=== PATIENT | male | born 1930 | race Caucasian/White ===

== ENCOUNTER 2017-10-16 14:22 | Inpatient (IN) | payer OTHER ==
[~2017-10-16] VITALS: Ht 177.8 cm; Wt 92.1 kg
[2017-10-16 14:48] VITALS: BP 139/89
--- NOTE | 2017-10-16 14:58 | NUR ---
PT TAKEN TO BED 12
--- NOTE | 2017-10-16 15:22 | NUR ---
PT CAME IN FROM HOME WITH FAMILY. PT HAS HX OF CVA AND OH. PT NON-VERBAL (NORMAL). O2SAT WAS 86. PUT O 2LPM O2 VIA NC AND OX INCREASED TO 92%. PT DOES NOT APPEAR TO BE IN DISTRESS. PLACED IN POC. AWARES. CONTINUE TO MONITOR.
[2017-10-16] MEDS ORDERED: MORPHINE SULFATE 2 MG/ML SYR IVP ONE (15:30)
[2017-10-16] MEDS ORDERED: ALBUTEROL SULFATE/IPRATROPIU 3 ML SOL IH ONE (15:30)
[2017-10-16] MEDS ORDERED: FUROSEMIDE 100 MG/10 ML VIAL IVP ONE (15:30)
--- NOTE | 2017-10-16 16:19 | NUR ---
PT TAKEN TO X-RAY/CT [facility]IA [facility].
[2017-10-16 16:21] LABS: HEMATOCRIT 42.7 % (36-52); MEAN CORPUSCULAR HEMOGLOBIN 26 pg (27-31); MEAN CORPUSCULAR HGB CONC 33 g/dL (33-37); MEAN CORPUSCULAR VOLUME 79 fL (80-94); PLATELET COUNT (AUTO) 316 K/uL (140-450); RED BLOOD CELL COUNT(AUTO) 5.42 MIL/uL (4.20-6.10); WHITE BLOOD COUNT (AUTO) 16.4 K/uL (4.8-10.8)
--- NOTE | 2017-10-16 16:22 | NUR ---
PT TAKEN TO CT.
[2017-10-16 16:27] LABS: ALBUMIN 2.6 g/dL (3.4-5.0); AMYLASE 48 U/L (25-115); ANION GAP 3.8 (8-16); ASPARTATE AMINOTRANSFERASE 77 U/L (15-37); CARBON DIOXIDE 24.2 mmol/L (21-32); CHLORIDE 93 mmol/L (98-107); CREATININE 1.4 mg/dL (0.7-1.3); GLUCOSE 179 mg/dL (74-106); LIPASE 70 U/L (73-393); UREA NITROGEN, BLOOD 34 mg/dL (7-18)
[2017-10-16] MEDS ORDERED: LACT10SO1 PO (16:30)
[2017-10-16] MEDS ORDERED: ASPI81CT89 PO (16:30)
[2017-10-16] MEDS ORDERED: MIRT15TA PO (16:30)
[2017-10-16] MEDS ORDERED: TAMS0.4C96 PO (16:30)
[2017-10-16] MEDS ORDERED: FLONAS NS (16:30)
[2017-10-16] MEDS ORDERED: FINA5TAB1 PO (16:30)
[2017-10-16] MEDS ORDERED: [UNRECOGNIZED DRUG - CODE] PO (16:30)
[2017-10-16] MEDS ORDERED: MAGN400S60 PO (16:30)
--- NOTE | 2017-10-16 16:30 | NUR ---
PATIENT IS BACK FROM CT [facility]IA [facility].
[2017-10-16 16:31] LABS: SODIUM SERUM 118 mmol/L (136-145)
[2017-10-16] MEDS ORDERED: NACL 0.9% 1,000 ML IV ONE (16:40)
[2017-10-16 16:45] LABS: LYMPHOCYTES % (MANUAL) 5 % (20-46); MONOCYTES % (MANUAL) 11 % (5-12)
[2017-10-16] MEDS ORDERED: methylPREDNISolone SS 125 MG in WATER STERILE 2 ML IM ONE (17:20)
[2017-10-16] MEDS ORDERED: POTASSIUM CHL 20 MEQ/NACL 0.9% 1,000 ML IV ONE (17:20)
[2017-10-16] MEDS ORDERED: LACTATED RINGERS 1,000 ML IV ONE (17:20)
[2017-10-16] MEDS ORDERED: PIPERACILLIN/TAZOBACTAM 4.5 GM in DEXTROSE 5% 100 ML IV ONE (17:35)
[2017-10-16 18:12] LABS: MAGNESIUM 2.6 mg/dL (1.8-2.4); THYROID STIMULATING HORMONE 0.76 uIU/mL (0.34-3.74)
[2017-10-16 18:36] LABS: APPEARANCE,URINE SL CLOUDY (CLEAR); BILIRUBIN,URINE NEGATIVE (NEGATIVE); BLOOD, URINE 3+ (NEGATIVE); COLOR,URINE YELLOW (YELLOW); LEUKOCYTE ESTERASE ,URINE 2+ (NEGATIVE); NITRITE, URINE NEGATIVE (NEGATIVE); PH,URINE 5.5 (5.0-9.0); UGLUCOSE NEGATIVE (NEGATIVE)
[2017-10-16] MEDS ORDERED: PIPERACILLIN/TAZOBACTAM 2.25 GM VIAL IV ONE (18:37)
[2017-10-16 18:39] LABS: RBC,URINE 80-100 /HPF (0-5); WBC,URINE 16-25 (MOD) /HPF (0-5)
[2017-10-16] MEDS: POTASSIUM CHLORIDE 10 MEQ TABER PO ONE ×2 (18:40→19:15)
--- NOTE | 2017-10-16 19:35 | NUR ---
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
[2017-10-16 19:40] VITALS: BP 112/68
--- NOTE | 2017-10-16 21:13 | NUR ---
DR ORR CALLED TO GIVE ORDERS TO FOLLOW AND PT'S DAUGHTER LEONOR OJEDA HELP TO GIVE INFORMATION TO ADMIT PT
[2017-10-16] MEDS ORDERED: POTASSIUM CHLORIDE 20% 40 MEQ/15 ML UDC PO SCH (21:15)
[2017-10-16] MEDS ORDERED: SODIUM PHOSPHATE 118 ML ENEM RC SCH (21:20)
[2017-10-17] VITALS: BP 122/75
--- NOTE | 2017-10-17 | NUR ---
AFTER FIRST FLEET ENEMA GIVENPT HAS ONLY SMEAR YELLOW STOOL ABD DISTENDED PT NOT SIGNS OF PAIN REPOSITIONED Q2H SR ON TELEMETRY
[2017-10-17] MEDS ORDERED: SODIUM PHOSPHATE 118 ML ENEM RC SCH (03:30)
[2017-10-17 04:00] VITALS: BP 146/79
--- NOTE | 2017-10-17 04:05 | NUR ---
ANOTHER FLEET ENEMA GIVEN PT NON VERBAL NOT SIGNS OF PAIN SR ON TELMETRY REPOSITIONED Q2H IV INFUSING WELL ON LEFT HAND
--- NOTE | 2017-10-17 05:54 | NUR ---
PT SLEEPING ABD DISTENDED NOT STOOL YET ON TELE SR REPOSITIONED Q2H,LINEN CHANGED
[2017-10-17] MEDS: POTASSIUM CHL 20 MEQ/NACL 0.9% 1,000 ML IV SCH ×3 (05:57→17:27)
--- NOTE | 2017-10-17 05:59 | NUR ---
PT HGAS A PRODUCTIVE COUGH AND DIFFICULTY TO SPIT OUT
--- NOTE | 2017-10-17 06:52 | NUR ---
ABD DISTENTED AFTER 2 FLEET ENEMA NOT BM YET PT WILL ENDORSED TO DAY SHIFT FOR CONTINUITY OF CARE
--- NOTE | 2017-10-17 07:30 | NUR ---
RECEIVED PT FROM TRACK SUPERINTENDENT RN. PT AOX1 NON VERBAL, OPEN EYES TO NAME, DOES NOT FOLLOW COMMAND. 2L O2 VIA NC. ON TELEMETRY, ABD DISTENDED, TOMAS CATH DRAINING CLEAR ORANGE URINE. BRUISES ON ARMS AND REDNESS DISCOLORATION DRYNESS ON BOTH FEET, NO S/S OF ACUTE DISTRESS NOTED. BED IN LOW POSITION, CALL LIGHT WITHIN REACH. WILL CONTINUE TO MONITOR.
[2017-10-17 07:44] LABS: ANION GAP 13.2 (8-16); CHLORIDE 102 mmol/L (98-107); CREATININE 1.1 mg/dL (0.7-1.3); GLUCOSE 179 mg/dL (74-106); POTASSIUM 3.2 mmol/L (3.5-5.1); SODIUM SERUM 136 mmol/L (136-145); UREA NITROGEN, BLOOD 28 mg/dL (7-18)
[2017-10-17 07:53] LABS: BASOPHILS # (AUTO) 0.2 K/uL (0.00-0.22); EOSINOPHILS % (AUTO) 0.3 % (0.0-4.0); HEMATOCRIT 42.2 % (36-52); HEMOGLOBIN 13.8 g/dL (12.0-18.0); LYMPHOCYTES # (AUTO) 0.4 K/uL (2.0-11.5); LYMPHOCYTES % (AUTO) 2.6 % (20.5-51.1); MEAN CORPUSCULAR HEMOGLOBIN 26 pg (27-31); MEAN CORPUSCULAR HGB CONC 33 g/dL (33-37); MEAN CORPUSCULAR VOLUME 80 fL (80-94); MONOCYTES # (AUTO) 0.3 K/uL (0.8-1.0); MONOCYTES % (AUTO) 1.9 % (1.7-9.3); NEUTROPHILS # (AUTO) 14.4 K/uL (1.8-7.7); NEUTROPHILS % (AUTO) 94.2 % (42.2-75.2); PLATELET COUNT (AUTO) 255 K/uL (140-450); RED BLOOD CELL COUNT(AUTO) 5.31 MIL/uL (4.20-6.10); RED CELL DISTRIBUTION WIDTH 13.9 % (11.6-13.7); WHITE BLOOD COUNT (AUTO) 15.3 K/uL (4.8-10.8)
[2017-10-17 08:06] VITALS: BP 152/91
--- NOTE | 2017-10-17 09:23 | NUR ---
PATIENT HAS BEEN SCREENED AND CATEGORIZED HIGH NUTRITION RISK. PATIENT WILL BE SEEN WITHIN 1-2 DAYS OF ADMISSION. 10/16/17-10/17/[address]
[2017-10-17] MEDS ORDERED: ALBUTEROL SULFATE/IPRATROPIU 3 ML SOL IH PRN (09:30)
--- NOTE | 2017-10-17 09:30 | NUR ---
PT HAD SMALL BOWEL MOVEMENT. STOOL IS LIQUIDY AND YELLOW.
[2017-10-17] MEDS: PANTOPRAZOLE 40 MG INJ VIAL IVP SCH (09:34)
[2017-10-17] MEDS: POTASSIUM CHLORIDE 20% 40 MEQ/15 ML UDC PO SCH ×2 (10:05→10:20)
[2017-10-17 12:30] VITALS: BP 159/80
[2017-10-17] MEDS: LACTULOSE 20 GM/30 ML UDC PO SCH ×2 (13:17→20:44)
[2017-10-17] MEDS: metroNIDAZOLE 500 MG/NS PREMIX 100 ML IV SCH ×2 (13:17→20:44)
--- NOTE | 2017-10-17 15:59 | NUR ---
PLEASE REFER TO NUTRITION ASSESSMENT UNDER CARE ACTIVITY FOR ESTIMATED NUTRITIONAL NEEDS. 1.DIET TO ADVANCE TOLERATED 2.PT TO CONSUME > 75% ESTIMATED ENERGY AND PROTEIN NEEDS WITHIN 2-3 DAYS 3.RD TO FOLLOW-UP IN 2-3 DAYS ON 10/20/2017 PATIENT IS HIGH RISK. NETTA CHAHAL, RD
[2017-10-17 16:00] VITALS: BP 149/87
--- NOTE | 2017-10-17 19:40 | NUR ---
REPORT GIVEN TO TOOL ANALYST RN. PT IN STABLE CONDITION.
--- NOTE | 2017-10-17 19:45 | NUR ---
RECEIVED REPORT FROM DAY RN, PATIENT RESTING IN BED, AWAKE ALERT, NON-VERBAL. NO S/S OF DISTRESS NOTED, RESPIRATION EVEN AND UNLABORED, ON O2 NC 2L. IV ON LT HAND PATENT AND INTACT, INFUSING NS-KCL AT 100ML/HR, TOMAS IN PLACE DRAINING URINE BY GRAVITY. CALL LIGHT WITHIN REACH, SAFETY MEASURE ENSURED ,WILL CONTINUE TO MONITOR.
[2017-10-17 20:00] VITALS: BP 151/68
--- NOTE | 2017-10-17 20:05 | NUR ---
PLYWOOD FACTORY WORKER MADE ROUNDS, ASSISTED PLYWOOD FACTORY WORKER TURNING THE PATIENT. PATIENT IS RESTING IN BED, NO S/S OF DISTRESS NOTED, RESPIRATION EVEN AND UNLABORED, CALL LIGHT WITHIN REACH, SAFETY MEASURE ENSURED, WILL CONTINUE TO MONITOR.
[2017-10-17] MEDS: MIRTAZAPINE 15 MG TAB PO SCH (20:44)
--- NOTE | 2017-10-17 20:55 | NUR ---
DUE MEDICATION GIVEN, PATIENT TOLERATED WELL. NO S/S OF DISTRESS NOTED, RESPIRATION EVEN AND UNLABORED, CALL LIGHT WITHIN REACH, SAFETY MEASURE ENSURED, WILL CONTINUE TO MONITOR.
--- NOTE | 2017-10-17 22:10 | NUR ---
PATIENT WAS SLEEPING, NO S/S OF DISTRESS NOTED, RESPIRATION EVEN AND UNLABORED, EASY TO AROUSE. REPOSITIONED PATIENT WITH THE TRACK GREASER, CALL LIGHT WITHIN REACH, SAFETY MEASURE ENSURED, WILL CONTINUE TO MONITOR.
[2017-10-18] VITALS: BP 159/78
--- NOTE | 2017-10-18 00:19 | NUR ---
NOTED PATIENT MADE SMALL AMOUNT OF BOWEL MOVEMENT, CLEANED THE PATIENT AND CHANGED THE GOWN, REPOSITIONED THE PATIENT WITH THE DEALER SALES REP, CALL LIGHT WITHIN REACH, SAFETY MEASURE ENSURED, WILL CONTINUE TO MONITOR.
--- NOTE | 2017-10-18 02:33 | NUR ---
PATIENT WAS SLEEPING, EASY TO AROUSE, NO S/S OF DISTRESS NOTED, RESPIRATION EVEN AND UNLABORED, REPOSITIONED PATIENT WITH THE PROCESS CONTROL ENGINEER, CALL LIGHT WITHIN REACH, SAFETY MEASURE ENSURED, WILL CONTINUE TO MONITOR.
[2017-10-18 04:00] VITALS: BP 158/97
[2017-10-18] MEDS: POTASSIUM CHL 20 MEQ/NACL 0.9% 1,000 ML IV SCH ×2 (04:15→13:32)
--- NOTE | 2017-10-18 04:18 | NUR ---
REPOSITIONED PATIENT WITH THE RESTAURANT SUPERVISOR, PATIENT TOLERATED WELL. NO S/S OF DISTRESS NOTED, RESPIRATION EVEN AND UNLABORED, CALL LIGHT WITHIN REACH, SAFETY MEASURE ENSURED, WILL CONTINUE TO MONITOR.
[2017-10-18] MEDS: metroNIDAZOLE 500 MG/NS PREMIX 100 ML IV SCH ×3 (04:20→20:41)
[2017-10-18] MEDS: LACTULOSE 20 GM/30 ML UDC PO SCH (04:20)
--- NOTE | 2017-10-18 06:48 | NUR ---
NO CHANGE IN CONDITION, PATIENT WAS SLEEPING, EASY TO AROUSE, REPOSITIONED PATIENT WITH THE SUPERVISOR ROLLER PRINTING, PATIENT TOLERATED WELL. NO S/S OF DISTRESS NOTED, RESPIRATION EVEN AND UNLABORED, CALL LIGHT WITHIN REACH, SAFETY MEASURE ENSURED, WILL CONTINUE TO MONITOR.
--- NOTE | 2017-10-18 07:13 | NUR ---
MADE DR. ORR AWARE THAT PATIENT ONLY HAD SMALL AMOUNT OF BOWEL MOVEMENT. NO NEW ORDER RECEIVED AT THIS TIME.
--- NOTE | 2017-10-18 07:38 | NUR ---
ENDORSED PLAN OF CARE TO DAY SHIFT RN, PATIENT RESTING IN BED, IN STABLE CONDITION.
--- NOTE | 2017-10-18 07:40 | NUR ---
RECEIVED REPORT FROM NIGHT NURSE BULMARO AT PT BEDSIDE. PATIENT IS AWAKE AND ALERT, FOLLOWS COMMANDS. PATIENT UNABLE TO VERBALIZE NEEDS. ABDOMINAL DISTENTION NOTED WITH SMALL SMEAR. ON O2 2L NC. HAS TOMAS IN PLACE TO GRAVITY IN MODERATE AMOUNT. BEDREST, BED ALARMS CHECKED. BED IN LOWEST POSITION. IV SITE PATENT AND INTACT. LUNG SOUNDS COARSE. CALL LIGHT WITHIN REACH. HOB ELEVATED. NO S/S OF ACUTE DISTRESS NOTED.
[2017-10-18 07:52] LABS: BASOPHILS # (AUTO) 0.2 K/uL (0.00-0.22); BASOPHILS % (AUTO) 0.9 % (0.0-2.0); EOSINOPHILS % (AUTO) 0.2 % (0.0-4.0); HEMATOCRIT 44.3 % (36-52); HEMOGLOBIN 14.4 g/dL (12.0-18.0); LYMPHOCYTES % (AUTO) 5.9 % (20.5-51.1); MEAN CORPUSCULAR HEMOGLOBIN 26 pg (27-31); MEAN CORPUSCULAR HGB CONC 33 g/dL (33-37); MEAN CORPUSCULAR VOLUME 80 fL (80-94); MONOCYTES # (AUTO) 2.6 K/uL (0.8-1.0); MONOCYTES % (AUTO) 14.7 % (1.7-9.3); NEUTROPHILS # (AUTO) 13.8 K/uL (1.8-7.7); NEUTROPHILS % (AUTO) 78.3 % (42.2-75.2); PLATELET COUNT (AUTO) 288 K/uL (140-450); RED BLOOD CELL COUNT(AUTO) 5.52 MIL/uL (4.20-6.10); RED CELL DISTRIBUTION WIDTH 13.9 % (11.6-13.7)
[2017-10-18 08:00] VITALS: BP 154/92
[2017-10-18 08:12] LABS: ALBUMIN 2.4 g/dL (3.4-5.0); ANION GAP 12.8 (8-16); ASPARTATE AMINOTRANSFERASE 34 U/L (15-37); CARBON DIOXIDE 25.6 mmol/L (21-32); CHLORIDE 107 mmol/L (98-107); GLUCOSE 126 mg/dL (74-106); POTASSIUM 3.4 mmol/L (3.5-5.1); SODIUM SERUM 142 mmol/L (136-145); TOTAL BILIRUBIN 0.6 mg/dL (0.0-1.0); UREA NITROGEN, BLOOD 25 mg/dL (7-18)
[2017-10-18] MEDS ORDERED: SENNA 8.6 MG TAB PO SCH (09:00)
[2017-10-18] MEDS ORDERED: POLYETHYLENE GLYCOL 17 GM/PKT PO SCH (09:00)
[2017-10-18 09:08] LABS: WHITE BLOOD COUNT (AUTO) 17.6 K/uL (4.8-10.8)
--- NOTE | 2017-10-18 10:30 | NUR ---
PATIENT ASSISTED IN CHANGING OF POSITIONS. LINENS KEPT CLEAN AND DRY. RESTING IN BED, NO S/S OF ACUTE DISTRESS NOTED.
[2017-10-18] MEDS: TAMSULOSIN 0.4 MG CAP PO SCH (10:33)
[2017-10-18] MEDS: LOSARTAN 50 MG TAB PO SCH (10:33)
[2017-10-18] MEDS: PANTOPRAZOLE 40 MG INJ VIAL IVP SCH (10:33)
[2017-10-18 12:00] VITALS: BP 140/92
[2017-10-18] MEDS: POLYETHYLENE GLYCOL 17 GM/PKT PO SCH ×3 (13:00→20:41)
[2017-10-18] MEDS ORDERED: FUROSEMIDE 20 MG/2 ML VIAL IVP SCH (13:00)
[2017-10-18] MEDS ORDERED: MAGNESIUM CITRATE 300 ML BTL PO SCH (13:00)
[2017-10-18] MEDS: SENNA 8.6 MG TAB PO SCH ×2 (13:00→18:57)
--- NOTE | 2017-10-18 15:00 | NUR ---
PATIENT RETURNED FROM RADIOLOGY. NO S/S OF ACUTE DISTRESS NOTED, RESTING IN BED, EASILY AWAKENS. AWAITING RESULTS.
[2017-10-18 16:00] VITALS: BP 138/73
--- NOTE | 2017-10-18 18:30 | NUR ---
SPOKE WITH DR. SOUZA REGARDING BARRIUM XRAY , NEW ORDERS RECEIVED. PATIENT WAS TRANSFERRED TO BED 113. ORDERS FOR TELEMETRY MONITORING.
[2017-10-18] MEDS: POTASSIUM CHLORIDE 20% 40 MEQ/15 ML UDC PO SCH ×2 (18:56→20:41)
[2017-10-18] MEDS: LEVOFLOXACIN 500 MG/D5W PREMIX 100 ML IV SCH (19:00)
--- NOTE | 2017-10-18 19:25 | NUR ---
SBAR REPORT GIVEN TO RN HARVEY. NO S/S OF ACUTE DISTRESS NOTED.
--- NOTE | 2017-10-18 19:30 | NUR ---
RECEIVED PT IN STABLE CONDITION FROM AM NURSE. AWAKE, ALERT AND ORIENTED X 1-2. PT ON O2 2L/NC. ON TELE MONITOR. BEDREST . WITH IVF INFUSING WELL ON THE LT HAND#22. CLEAR AND PATENT. ABDOMEN IS LARGE, DISTENDED. STILL GETTING STOOL SOFTENER ORDERED. HAS TOMAS CATHETER TO GRAVITY, WITH CLEAR URINE OUTPUT. BED ON LOW POSITION. SIDE RAILS UP X2. NEED FREQUENT ROUNDS. CALL LIGHT PLACED WITHIN EASY REACH. HAS BLE SCD MACHINE ON. WILL CONTINUE TO MONITOR.
[2017-10-18 20:00] VITALS: BP 117/73
[2017-10-18] MEDS ORDERED: NEOSTIGMINE 1:1000 10 MG/10 ML VIAL IV SCH (20:00)
[2017-10-18] MEDS: MIRTAZAPINE 15 MG TAB PO SCH (20:41)
[2017-10-18] MEDS: BISACODYL 10 MG SUPP RC SCH (20:42)
--- NOTE | 2017-10-18 20:55 | NUR ---
NEOSTIGMINE IVP GIVEN ORDERED. PT HR WAS MONITORED BEFORE AND AFTER THE INFUSION. PT TOLERATED WELL. NO UNTOWARD REACTION NOTED. WILL CONTINUE TO MONITOR.
--- NOTE | 2017-10-18 22:00 | NUR ---
HAD A MODERATE LOOSE STOOL . CLEANED AND KEPT DRY. WILL CONTINUE TO MONITOR.
[2017-10-19 00:35] VITALS: BP 119/66
--- NOTE | 2017-10-19 01:00 | NUR ---
PT HAD ANOTHER LOOSE BROWNISH STOOL IN LARGE AMOUNT. CLEANED AND KEPT DRY. BUTTOCKS WITH SOME REDNESS . BUT INTACT. REPOSITIONED FOR COMFORT.
[2017-10-19 05:00] VITALS: BP 135/77
[2017-10-19] MEDS: metroNIDAZOLE 500 MG/NS PREMIX 100 ML IV SCH ×3 (05:02→21:12)
[2017-10-19] MEDS: POTASSIUM CHLORIDE 20% 40 MEQ/15 ML UDC PO SCH ×3 (05:03→21:13)
[2017-10-19] MEDS: POTASSIUM CHL 20 MEQ/NACL 0.9% 1,000 ML IV SCH (05:09)
--- NOTE | 2017-10-19 07:00 | NUR ---
PT HAD A TOTAL X4 LOOSE BROWNISH BM DURING THE NIGHT.
[2017-10-19] MEDS ORDERED: MILD SOAP AND WATER TP PRN (07:05)
[2017-10-19] MEDS ORDERED: HYDRAGUARD CREAM TP PRN (07:05)
--- NOTE | 2017-10-19 07:30 | NUR ---
ENDORSED PT IN STABLE CONDITION TO AM NURSE.
--- NOTE | 2017-10-19 07:31 | NUR ---
RECEIVED REPORT FROM MONOGRAM MACHINE OPERATOR NURSE HARVEY AT BEDSIDE FOR CONTINUITY OF CARE. PT IS SLEEPING RIGHT NOW. NON-VERBAL. NO SIGNS OF DISTRESS. IV INFUSING AT 50ML/HR. WILL CONTINUE TO MONITOR.
[2017-10-19 08:00] VITALS: BP 136/70
[2017-10-19] MEDS: BISACODYL 10 MG SUPP RC SCH ×2 (09:00→21:14)
[2017-10-19] MEDS: SENNA 8.6 MG TAB PO SCH ×3 (09:00→17:48)
[2017-10-19] MEDS: POLYETHYLENE GLYCOL 17 GM/PKT PO SCH ×4 (09:00→21:12)
[2017-10-19] MEDS: LOSARTAN 50 MG TAB PO SCH (10:14)
[2017-10-19] MEDS: TAMSULOSIN 0.4 MG CAP PO SCH (10:14)
[2017-10-19] MEDS: PANTOPRAZOLE 40 MG INJ VIAL IVP SCH (10:14)
[2017-10-19 10:37] LABS: BASOPHILS # (AUTO) 0.4 K/uL (0.00-0.22); BASOPHILS % (AUTO) 2.4 % (0.0-2.0); EOSINOPHILS % (AUTO) 0.2 % (0.0-4.0); HEMATOCRIT 42.3 % (36-52); HEMOGLOBIN 13.6 g/dL (12.0-18.0); LYMPHOCYTES # (AUTO) 1.4 K/uL (2.0-11.5); MEAN CORPUSCULAR HEMOGLOBIN 26 pg (27-31); MEAN CORPUSCULAR HGB CONC 32 g/dL (33-37); MEAN CORPUSCULAR VOLUME 81 fL (80-94); MONOCYTES # (AUTO) 1.4 K/uL (0.8-1.0); MONOCYTES % (AUTO) 8.8 % (1.7-9.3); NEUTROPHILS # (AUTO) 12.7 K/uL (1.8-7.7); NEUTROPHILS % (AUTO) 79.6 % (42.2-75.2); PLATELET COUNT (AUTO) 265 K/uL (140-450); RED CELL DISTRIBUTION WIDTH 14.3 % (11.6-13.7)
[2017-10-19 11:24] LABS: ANION GAP 8.6 (8-16); CARBON DIOXIDE 26.9 mmol/L (21-32); CHLORIDE 111 mmol/L (98-107); POTASSIUM 3.5 mmol/L (3.5-5.1); SODIUM SERUM 143 mmol/L (136-145)
[2017-10-19 11:25] LABS: CREATININE 0.9 mg/dL (0.7-1.3); GLUCOSE 98 mg/dL (74-106); UREA NITROGEN, BLOOD 28 mg/dL (7-18)
[2017-10-19 11:45] LABS: ALBUMIN 2.3 g/dL (3.4-5.0); ASPARTATE AMINOTRANSFERASE 30 U/L (15-37); TOTAL BILIRUBIN 0.7 mg/dL (0.0-1.0)
[2017-10-19 12:00] VITALS: BP 115/59
[2017-10-19 12:11] LABS: WHITE BLOOD COUNT (AUTO) 15.9 K/uL (4.8-10.8)
[2017-10-19] MEDS: MILD SOAP AND WATER TP SCH (12:50)
[2017-10-19] MEDS: HYDRAGUARD CREAM TP SCH (13:00)
--- NOTE | 2017-10-19 13:00 | NUR ---
ADMINISTERED SCHEDULED MEDS. PT TOLERATED WELL. ADMIN HYDRAGUARD TO JANETH AREA FOR REDNESS DUE TO INCONTINENT STOOL. REPOSITIONED PT TO LEFT LATERAL. RESTING IN BED RIGHT NOW. NO SIGNS OF DISTRESS WILL CONTINUE TO MONITOR.
[2017-10-19] MEDS ORDERED: NEOSTIGMINE 1:1000 10 MG/10 ML VIAL IV SCH ×2 (14:02→15:00)
[2017-10-19] MEDS: LEVOFLOXACIN 500 MG/D5W PREMIX 100 ML IV SCH (14:29)
--- NOTE | 2017-10-19 14:30 | NUR ---
DR. SOUZA CAME IN AND SAW PT. ADMINISTERED NEOSTIGMINE PER ORDER BY . MONITORED HR AND PT ON TELE MONITOR. HR 88. SR. NO SIGNS OF DISTRESS. WILL CONTINUE TO MONITOR.
[2017-10-19 16:00] VITALS: BP 103/54
--- NOTE | 2017-10-19 17:45 | NUR ---
ADMINISTERED SCHEDULED MEDS. PT TOLERATED WELL. PT'S DAUGHTER AT BEDSIDE. UPDATED ON PT STATUS, CHANGE IN DIET AND REPORTED HAVING 2 BMS TODAY. NO SIGNS OF DISTRESS. BED IN LOW POSITION, WHEELS LOCKED, BED ALARM ON, WILL CONTINUE TO MONITOR.
--- NOTE | 2017-10-19 19:30 | NUR ---
ENDORSED PT TO HOG COOLER NURSE IRMA AT BEDSIDE FOR CONTINUITY OF CARE. PT IN STABLE CONDITION.
--- NOTE | 2017-10-19 19:32 | NUR ---
RECEIVED PT FROM DAY SHIF NURSE PT IS AOX1 MUMBLING SAY SOME WORDS, ON ;0;2 2 LTS VIA NC, ON TELEMETRY SR IV ;ON LEFT HAND INFUSING WELL, TOMAS CATH DRAINING WELL DARK SARWAT COLOR URINE , ABD DISTENTED, PERISTALSIS PRESENT,LIGHT REDNESS ONBUTTOCK REPOSITIONED INITIAL ASSESSMENT DONE
[2017-10-19 20:00] VITALS: BP 90/49
[2017-10-19] MEDS: MIRTAZAPINE 15 MG TAB PO SCH (21:13)
--- NOTE | 2017-10-19 22:00 | NUR ---
PT HAS BEEN REPOSITIONED Q2H ON TEL SR D NOT SIGNS OF PAIN NOTED FOLLOW COMMANDS
[2017-10-20] VITALS: BP 127/77
[2017-10-20] MEDS: MILD SOAP AND WATER TP SCH ×2 (01:00→12:56)
[2017-10-20] MEDS: HYDRAGUARD CREAM TP SCH ×2 (01:00→12:55)
--- NOTE | 2017-10-20 01:00 | NUR ---
PT REPOSITIONED ON TELE SR NOT DISTRESS NOTED
[2017-10-20 04:00] VITALS: BP 145/77
--- NOTE | 2017-10-20 04:00 | NUR ---
SPONGE BATH GIVEN , LINEN CHANGED A BIG BM ON TELE SR PT COOPERATIVE TO FOLLOW COMMANDS
[2017-10-20] MEDS: metroNIDAZOLE 500 MG/NS PREMIX 100 ML IV SCH ×2 (05:30→12:54)
[2017-10-20] MEDS: POTASSIUM CHLORIDE 20% 40 MEQ/15 ML UDC PO SCH ×2 (05:31→12:55)
[2017-10-20] MEDS: POTASSIUM CHL 20 MEQ/NACL 0.9% 1,000 ML IV SCH (05:35)
--- NOTE | 2017-10-20 06:30 | NUR ---
PT RESTING ON BED MORE ALERT SAY SOME WORDS FOLLOW COMMANDS ON TELEMETRYSR NOT FEVER , NOT SIGNS OF PAIN ABD LESS DISTENDED PERISTALSIS PRESENT
--- NOTE | 2017-10-20 07:30 | NUR ---
RECEIVED PT FROM HARVEST WORKER FRUIT RN, CONTACT ISOLATION, DNR STATUS. PT AWAKE, ALERT, ABLE TO FOLLOW COMMANDS. ON O2 NC 2L/MIN, NO S/S OF RESPIRATORY DISTRESS NOTED, PT UNABLE TO TURN HIMSELF, IV SITE INTACT AND PATENT. REDNESS TO SACRAL AREA. REPOSITIONED PT. CALL LIGHT IN REACH, WILL CONTINUE TO MONITOR.
[2017-10-20 07:44] LABS: HEMATOCRIT 42.7 % (36-52); HEMOGLOBIN 13.7 g/dL (12.0-18.0); MEAN CORPUSCULAR HEMOGLOBIN 26 pg (27-31); MEAN CORPUSCULAR HGB CONC 32 g/dL (33-37); MEAN CORPUSCULAR VOLUME 81 fL (80-94); PLATELET COUNT (AUTO) 256 K/uL (140-450); RED BLOOD CELL COUNT(AUTO) 5.26 MIL/uL (4.20-6.10); RED CELL DISTRIBUTION WIDTH 14.6 % (11.6-13.7); WHITE BLOOD COUNT (AUTO) 14.5 K/uL (4.8-10.8)
[2017-10-20 08:00] VITALS: BP 134/74
[2017-10-20 08:07] LABS: ASPARTATE AMINOTRANSFERASE 26 U/L (15-37); CARBON DIOXIDE 26.8 mmol/L (21-32); CHLORIDE 115 mmol/L (98-107); CREATININE 0.9 mg/dL (0.7-1.3); GLUCOSE 123 mg/dL (74-106); POTASSIUM 3.8 mmol/L (3.5-5.1); SODIUM SERUM 148 mmol/L (136-145); TOTAL BILIRUBIN 0.5 mg/dL (0.0-1.0); UREA NITROGEN, BLOOD 22 mg/dL (7-18)
[2017-10-20] MEDS ORDERED: POTASSIUM CHL 20 MEQ/ 1/2 NS 1,000 ML IV SCH (08:25)
[2017-10-20 09:09] LABS: EOSINOPHILS % (MANUAL) 2 % (0-4); LYMPHOCYTES % (MANUAL) 10 % (20-46); MONOCYTES % (MANUAL) 5 % (5-12)
[2017-10-20] MEDS: PANTOPRAZOLE 40 MG INJ VIAL IVP SCH (09:25)
[2017-10-20] MEDS: SENNA 8.6 MG TAB PO SCH ×3 (09:26→17:06)
[2017-10-20] MEDS: POLYETHYLENE GLYCOL 17 GM/PKT PO SCH ×3 (09:26→17:06)
[2017-10-20] MEDS: TAMSULOSIN 0.4 MG CAP PO SCH (09:26)
[2017-10-20] MEDS: LOSARTAN 50 MG TAB PO SCH (09:26)
[2017-10-20] MEDS: BISACODYL 10 MG SUPP RC SCH (09:26)
--- NOTE | 2017-10-20 10:00 | NUR ---
PT HAD MODERATE AMOUNT OF LOOSE BM, CLEANED PT.
--- NOTE | 2017-10-20 10:30 | NUR ---
CALLED [facility] AND SPOKE WITH NURSING DAY CARE AIDE REGARDING PATIENT NEEDS NO BE TRANSFERED TO [facility] FOR [facility] REPLACEMENT. BUT [facility] STATED HAS NO BED THEIR ER ARE SWAMPED UNABLE TO TAKE PATIENT AT THIS TIME. Addendum: 10/20/17 at 1252 by Michelle Bennett RN WRONG PATIENT
[2017-10-20 12:00] VITALS: BP 135/70
[2017-10-20] MEDS: LEVOFLOXACIN 500 MG/D5W PREMIX 100 ML IV SCH (12:55)
--- NOTE | 2017-10-20 13:02 | NUR ---
Social Service Note: I called and spoke with patient's daughter Jocelynn Kwon , she stated she is willing to pay for patient's transportation to return to [facility], she provided me with [address] [facility] [address] [place] [id number]. Per charge nurse Michelle, patient may be transported via gurney, no oxygen. I called and spoke with Nathalia from [employer] , per Nathalia, it is $122 for gurney transport from hospital to [facility]. I called Jocelynn back and informed her of transportation rate. She stated she is able to pay. I called Nathalia from [employer] back and provided her with Jocelynn's contact information. Per Nathalia, they will pick patient up today at 5:30pm, charge nurse Martinez made aware.
--- NOTE | 2017-10-20 15:00 | NUR ---
PT RESTING IN BED, NO S/S OF RESPIRATORY DISTRESS NOTED.
[2017-10-20 16:00] VITALS: BP 127/53
--- NOTE | 2017-10-20 19:00 | NUR ---
PT AWAKE, ALERT,NO S/S OF RESPIRATORY DISTRESS NOTED. TRANSPORTATION TEAM PRESENT TO UNIT, REPORT GIVEN. PT LEFT UNIT AT THIS TIME.
--- NOTE | 2017-10-22 08:20 | NUR ---
WOUND CARE EVALUATION NOT DONE, PT. DISCHARGED.
== END 2017-10-20 19:00 | DRG 872 ==
LOC: MED 14:22 → MTU 17:37
PROVIDERS: ADMIT Family Medicine; ATTEND Family Medicine
DX: A41.9 Sepsis, unspecified organism (principal); K56.609 Unspecified intestinal obstruction, unspecified as to partial versus complete obstruction; E44.1 Mild protein-calorie malnutrition; J84.10 Pulmonary fibrosis, unspecified; I11.0 Hypertensive heart disease with heart failure; I50.9 Heart failure, unspecified; F01.50 Vascular dementia, unspecified severity, without behavioral disturbance, psychotic disturbance, mood disturbance, and anxiety; I73.9 Peripheral vascular disease, unspecified; E87.1 Hypo-osmolality and hyponatremia; N39.0 Urinary tract infection, site not specified; K56.41 Fecal impaction; Z66 Do not resuscitate; R74.0 Nonspecific elevation of levels of transaminase and lactic acid dehydrogenase [LDH]; K80.20 Calculus of gallbladder without cholecystitis without obstruction; Z16.12 Extended spectrum beta lactamase (ESBL) resistance; J44.9 Chronic obstructive pulmonary disease, unspecified; E87.6 Hypokalemia; I25.10 Atherosclerotic heart disease of native coronary artery without angina pectoris; F32.9 Major depressive disorder, single episode, unspecified; Z68.29 Body mass index [BMI] 29.0-29.9, adult; Z88.8 Allergy status to other drugs, medicaments and biological substances; I25.2 Old myocardial infarction; Z87.891 Personal history of nicotine dependence; Z86.73 Personal history of transient ischemic attack (TIA), and cerebral infarction without residual deficits
CPT/HCPCS: 36415; 71045; 74018; 74270; 76705; 80048; 80053; 81001; 82150; 82977; 83690; 83735; 84443; 85025; 87070; 87081; 87086; 87186; 94640; 96372; 96374; 96375; 99285; C9113; J0696; J1940; J1956; J2270; J2543; J2710; J2930; J3480; J3490; J7030; J7060; J7620; Q0092